=== PATIENT | male | born 2000 | race Caucasian/White ===

== ENCOUNTER 2022-08-10 19:33 | Emergency (ER) | payer BC ==
[~2022-08-10] VITALS: Ht 193 cm; Wt 93.0 kg
[2022-08-10 19:41] VITALS: BP_SYST 133
--- NOTE | 2022-08-10 19:41 | NUR ---
Patient triaged and placed in waiting room. VSS and patient appears in no acute distress at this time. Accompanied by SELF, awaiting available bed, and MD notified of need for MSE.
--- NOTE | 2022-08-10 19:48 | NUR ---
BEE STING TO LEFT FOOT, ALLERGY TO BEE STING, REDNESS NOTED AT THIS TIME, HISTORY OF MODERATE SWELLING TO BEE STING, 1/10 PAIN
--- NOTE | 2022-08-10 19:55 | NUR ---
ER in triage examining patient.
[2022-08-10] MEDS ORDERED: DIPHENHYDRAMINE HCL 50 MG CAPSULE PO ONE (21:30)
[2022-08-10] MEDS ORDERED: predniSONE 20 MG TABLET PO ONE (21:30)
[2022-08-10] MEDS ORDERED: EPIN0.3P3 IM (21:34)
[2022-08-10] MEDS ORDERED: PRED20TA PO (21:34)
[2022-08-10] MEDS ORDERED: DIPH25CA83 PO (21:34)
[2022-08-10 21:46] VITALS: BP_SYST 130
--- NOTE | 2022-08-10 21:46 | NUR ---
Patient given written and verbal discharge instructions and verbalizes understanding. ER DR VILLARREAL discussed with patient the results and treatment provided. Patient in stable condition. ID arm band removed. IV catheter removed intact and dressing applied, no active bleeding. Rx of BENADRYL, EPIPEN, PREDNISONE given. Patient educated on pain management and to follow up with PMD. Pain Scale 0/10. Opportunity for questions provided and answered. Medication side effect fact sheet provided.
== END 2022-08-10 21:46 | disposition home or self-care (01) ==
LOC: SED 19:33
DX: T63.441A Toxic effect of venom of bees, accidental (unintentional), initial encounter (principal); Z91.030 Bee allergy status; Z79.899 Other long term (current) drug therapy; Y92.89 Other specified places as the place of occurrence of the external cause
CPT/HCPCS: 99283; Q0163; J7512